=== PATIENT | female | born 1985 | race Hispanic/Latino ===

== ENCOUNTER 2018-06-02 08:48 | Observation (INO) | payer BC ==
[2018-05-26 13:09] VITALS: BMI 25.0
[2018-06-02 09:59] LABS: BASO # 0.1 K/uL (0.0-0.2); EOS # 0.1 K/uL (0.0-0.7); EOS % 1.3 % (0.0-4.0); HEMOGLOBIN 12.2 g/dL (12.0-16.0); LYMPH # 1.7 K/uL (1.0-4.3); MEAN CELL VOLUME 88.1 fl (81.0-99.0); MEAN CORPUSCULAR HEMOGLOBIN 29.8 pg (27.0-31.0); MEAN CORPUSCULAR HGB CONC 33.8 g/dL (33.0-37.0); MEAN PLATELET VOLUME 9.8 fl (7.2-11.7); MONO # 0.4 K/uL (0.0-0.8); NEUT # 4.2 K/uL (1.8-7.0); NEUT % 65.7 % (50.0-75.0); NRBC % 0.1 % (0.0-0.0); RBC 4.08 Mil/uL (3.80-5.20); RED CELL DISTRIBUTION WIDTH 13.8 % (11.5-14.5); WHITE BLOOD COUNT 6.5 K/uL (4.8-10.8)
[2018-06-02 10:16] LABS: BLOOD UREA NITROGEN 8 mg/dl (7-17); CALCIUM 8.9 mg/dL (8.4-10.2); GFR NON-AFRICAN AMERICAN > 60
[2018-06-02] MEDS ORDERED: Lactated Ringer's 1,000 ML IV ONE ×3 (11:50→22:00)
[2018-06-02] MEDS ORDERED: Bupivacaine HCl 0.5% PF (30 ml) Inj ONE (15:10)
[2018-06-02] MEDS ORDERED: Propofol 10 mg/ml Inj (20 ML) ONE (15:26)
[2018-06-02] MEDS ORDERED: Midazolam 2 MG/2 ML VIAL ONE ×2 (15:26→18:07)
[2018-06-02] MEDS ORDERED: Rocuronium 10 mg/ml (5 ml) ONE (15:26)
[2018-06-02] MEDS ORDERED: Dexamethasone 4 mg/1 ml ONE (15:54)
[2018-06-02] MEDS ORDERED: Silver Nitrate Topical - Stick TOP ONE (17:05)
[2018-06-02] MEDS ORDERED: HYDROmorphone 1 mg/ml ISec IVP PRN (17:33)
[2018-06-02] MEDS ORDERED: Lactated Ringer's 1,000 ML IV SCH ×2 (17:45→21:30)
[2018-06-02] MEDS ORDERED: Midazolam 2 MG/2 ML VIAL IVP PRN ×2 (18:05→20:53)
[2018-06-02] MEDS ORDERED: Trimethobenzamide 200 mg/2 mL Inj IM ONE (19:02)
[2018-06-02] MEDS ORDERED: DiphenhydrAMINE 50 mg/ml Inj IVP PRN (19:03)
[2018-06-02] MEDS ORDERED: Oxycodone/Acetaminophen 5/325 mg Tab PO PRN (21:24)
[2018-06-03 08:21] VITALS: BP 105/58; RESP 16; O2SAT 100
[2018-06-03 14:35] VITALS: PULSE 74; TEMP 98.8
--- NOTE | 2018-06-07 14:08 | PCM.OP ---
Operative Report - Operative Report Date of Surgery/Procedure: 06/02/18 Time of Surgery/Procedure: 08:00 Surgeon: Dr. Nasir Evans Medical Logistics Specialist: Dr. Jordan Kirby Anesthesia/Sedation: general/Dr. Lee Pre-Operative Diagnosis: abdominal pain and endometriosis Post-Operative Diagnosis: same Indication for Surgery: as above Operative Findings: as above Procedure/Operation Description: 1-Excision perirectal endometriosis. Brief History: This 32 year old woman had already been brought to the operatong room by Dr. Kirby and he called for a general surgery consultation. Description of the Procedure: The patient had already been brought to the operating room by Dr. Kirby 9separate dictation). After taking control of the robotic console the lesion in the rectum was incised circumferentially and with blunt and sharp dissection the lesion was excised en-bloc and sent to pathology separately. The operation was then turned over to Dr. Kirby (separate dictation Dr. Kirby). Estimated Blood Loss: 5 cc Complications: none Discharge & Condition: stable
--- NOTE | 2018-06-13 11:21 | OP ---
PROCEDURE DATE: 06/02/2018 SURGEON: Tru Kirby MD RECREATION COUNSELOR: 1. Nasir Evans MD 2. Susan Dunham DO ANESTHESIOLOGIST: Hunter HRER, [facility]; Martina HERR, [employer] ANESTHETIC: General Endo PREOPERATIVE DIAGNOSES: 1. Incapacitating pelvic pain. 2. Incapacitating abdominal pain. 3. Bladder Pain 4. Rule out pelvic endometriosis. 5. History of previous failed medical surgical therapy. 6. Gastrointestinal and genitourinary symptoms POSTOPERATIVE DIAGNOSES: 1. Incapacitating pelvic pain. 2. Incapacitating abdominal pain. 3. Bladder Pain 4. Pelvic endometriosis. 5. Anterior bladder serosa endometriosis 6. Rule out interstitial cystitis. 7. Right ovarian Mass , rule out fibroma OPERATION PERFORMED: 1. Examination under anesthesia. 2. Robotic da Jackelin laparoscopy 3. Multiple peritoneal biopsies and excision of endometriosis. 4. Treatment of endometriosis. 5. Excision of ovarian mass Dr. Evans from General Surgery was consulted to perform 1-Excision perirectal endometriosis procedure and he will dictate that separately. COMPLICATIONS: None. SAMPLES: Sent to pathology ESTIMATED BLOOD LOSS: Minimal. FINDINGS: Genitalia: normal, external genitalia, cervix normal without lesions or polyps. Laparoscopy was normal, gallbladder was normal, liver edges appeared to be normal. Ascending colon and transverse were normal. There was evidence , fibrosis and endometriosis of the rectovaginal septum and the posterior aspect of the uterus and to both the right and left pelvic sidewalls. . Fallopian tubes appeared to have some inflammatory changes but overall appeared to be normal. There was also evidence of endometriosis of the rectovaginal septum in right and left perirectal areas.There was a peritoneal pocket in the anterior cul de sac on the left it was a deep pocket involcving the bladder serosa and partial muscolaris. CONSENT: The patient had been thoroughly evaluated and counseled regarding pros and cons of the procedure, the reasonable alternative, and the possible complications. She understood and accepted the risks involved. Appropriate literature was provided to the patient. The patient was in understanding that given her history and presurgical exam, she knows that she was a high risk and average patient. She accepted all the risks involved and all the questions had been answered to her satisfaction. DESCRIPTION OF PROCEDURE: Initiation of the case: After adequate anesthesia was obtained, the patient was placed in the dorsal lithotomy position with extreme care of placement of the patient without hyperextension or hyperflexing the hips. At this point, the patient was prepped and draped, the surgeon was gowned and gloved. A time- out was taken according to the hospital procedure and the procedure was started. At this point, we proceeded with placement of trocars and docking of the Da Jackelin Xi robot The surgeons were gowned and gloved, and an open laparoscopy was performed by making an incision below the umbilicus, and the fascia was incised, and the peritoneum was entered in the blunt fashion. The cannula was inserted and the abdomen was insufflated, and under direct visualization 3 additional ports were inserted, left upper quadrant, left mid quadrant and right upper quadrant. At this point, the da Jackelin Xi robot was brought into the field and docked, and the instruments were inserted under direct visualization. With extreme care not to injure the bowel or any other area. As per the dictation, the upper abdomen appeared to be normal with no evidence of any lesions. The pelvis had the findings described above. At this point, we proceeded with a treatment of endometriosis and excision of endometriosis. On the left hand side, a large area of peritoneum, where containing endometriosis was excised in the ovarian fossa with the upper margin of the excision at the utero_ovarian ligament all the way down to the uterosacral ligament. Areas of fibrosis were identified in posterior cul-de-sac and the rectovaginal space was affected with endometriosis and severe fibrosis. The rectovaginal area was then dissected and the space was opened, and we were able to dissect the rectum away from the posterior aspect of the cervix. At this point, we proceeded with excision of the endometriosis on the right hand side where similarly in a full excision of endometriosis was performed by performing incision from starting at the right utero_ovarian ligament all the way down to the right uterosacral ligament. At this point the anterior peritoneal pocket was careully dissected with great care not to enter the bladder. It was completely excised with excellet hemostasis. At this point, Dr. Evans from General Surgery was called in and he performed Excision perirectal endometriosis procedure, which she will dictate separately. At this point, it was checked for hemostasis and appeared to be excellent. All the endometriosis had been excised. At this point we proceeded with excision of the right ovarian mass A 2 cm lesion was observed on the right ovary. It was solid in appearance but did not have malignant features. It was carefully dissected with ectreme care not to damage the ovay and placed in an endo bag and removed from the abdominal cavity. . At this point the pelvis was irrigated. The da Jackeiln Xi robot was removed. The abdomen desufflated. The instruments were removed. The incisions were closed in layers with 0 PDS for the fascia and 4-0 Monocryl for the skin. The patient was awakened up and taken to recovery room in excellent condition. Tru Kirby MD [facility]ENTERDeana
== END 2018-06-03 15:16 | disposition home or self-care (01) ==
LOC: H.OPSURG 08:48 → H.PEDS 22:08
PROVIDERS: ADMIT Obstetrics & Gynecology Reproductive Endocrinology; ATTEND Obstetrics & Gynecology Reproductive Endocrinology
DX: D27.0 Benign neoplasm of right ovary (principal); N80.3 Endometriosis of pelvic peritoneum; N80.4 Endometriosis of rectovaginal septum and vagina; R10.2 Pelvic and perineal pain
CPT/HCPCS: 36415; 49321; 58662; 80048; 85025; 86850; 86900; 88305; 88311; G0378; J0131; J0690; J1100; J1170; J1200; J1885; J2001; J2250; J2405; J2704; J2765; J3010; J3250; J7030; J7120; S2900